=== PATIENT | male | born 1930 | race Caucasian/White ===

== ENCOUNTER 2019-04-15 10:58 | Outpatient (CLI) | payer MEDICARE, OTHER ==
[2019-04-15] MEDS ORDERED: IOHEXOL-300 100 ML VIAL IV ONE (11:46)
[2019-04-15] MEDS ORDERED: IV NS 0.9% 250 ML IV ONE (11:46)
[2019-04-15] MEDS ORDERED: CT SWABBABLE VALVE TRANS SET 1 EA INFUS.SET MC ONE (11:46)
== END 2019-04-15 23:59 | disposition home or self-care (01) ==
LOC: CT 10:58
PROVIDERS: ATTEND Internal Medicine Interventional Cardiology
DX: I71.4 Abdominal aortic aneurysm, without rupture (principal); I70.293 Other atherosclerosis of native arteries of extremities, bilateral legs; K55.069 Acute infarction of intestine, part and extent unspecified; M25.461 Effusion, right knee; M25.462 Effusion, left knee; D17.79 Benign lipomatous neoplasm of other sites
CPT/HCPCS: 75635; J7050; Q9967